=== PATIENT | female | born 1970 | race Caucasian/White ===

== ENCOUNTER 2017-08-13 00:13 | Emergency (ER) | payer OTHER ==
[~2017-08-13] VITALS: Ht 167.6 cm; Wt 68.2 kg
[2017-08-13 00:47] LABS: BASO # 0.1 10^3/uL (0.0-0.2); BASO % 1.7 % (0.0-1.0); EOS # 0.2 10^3/uL (0.0-0.50); EOS % 1.9 % (0.0-3.0); IMMATURE GRANULOCYTE % 0.2 % (0-0); LYMPH # 2.7 10^3/uL (1.5-4.5); LYMPH % 32.5 % (24.0-44.0); MEAN CORPUSCULAR HEMOGLOBIN 37.1 pg (27.0-33.0); MEAN CORPUSCULAR HGB CONC 34.6 g/dl (32.0-36.5); MONO # 0.4 10^3/uL (0.0-0.8); MONO % 5.2 % (0.0-5.0); NEUTROPHILS # 4.9 10^3/uL (1.8-7.7); NEUTROPHILS % 58.5 % (36.0-66.0); PLATELET COUNT, AUTOMATED 302 10^3/uL (150-450); RED CELL DISTRIBUTION WIDTH 13.7 % (11.5-14.5); WHITE BLOOD COUNT 8.3 10^3/uL (4.0-10.0)
[2017-08-13 00:58] LABS: ADD MORPHOLOGY? YES; MEAN CORPUSCULAR VOLUME 107.2 fl (80.0-96.0); POSITIVE MORPH POS FLAG
[2017-08-13 01:23] LABS: ANION GAP 11 MEQ/L (8-16); BLOOD UREA NITROGEN 6 MG/DL (7-18); CALCIUM LEVEL 8.6 MG/DL (8.5-10.1); CARBON DIOXIDE LEVEL 25 MEQ/L (21-32); CHLORIDE LEVEL 109 MEQ/L (98-107); CREATININE FOR GFR 0.58 MG/DL (0.55-1.02); GLOMERULAR FILTRATION RATE > 60.0 (>58); GLUCOSE, FASTING 80 MG/DL (70-105); POTASSIUM SERUM 3.2 MEQ/L (3.5-5.1); SODIUM LEVEL 145 MEQ/L (136-145)
--- NOTE | 2017-08-13 01:30 | REP ---
Clinical: Chest pain . Comparison: None . Findings: The mediastinum and cardiac silhouette are stable and within normal limits for portable technique. The lung garrido are clear without acute consolidation, effusion, or pneumothorax. Skeletal structures are intact. Impression: No acute cardiopulmonary process appreciated. Signed by Tommie Crews MD 08/13/2017 01:21 A
[2017-08-13] MEDS ORDERED: MORPHINE 2 MG/ML 1ML SYRINGE IV ONE (06:45)
[2017-08-13 07:44] VITALS: BP 120/68
--- NOTE | 2017-08-13 08:28 | ECGEPIP ---
Stationary ECG Study [facility] - ED Test Date: 2017-08-13 Pat Name: SHELLY DURÁN Department: Room: - Gender: F Industrial Engineering Director: rn : 1970 Requested By: SUSY Doty Order Number: [id number] Reading MD: Trisha Vallejo Measurements Intervals [place] Rate: 79 P: 18 ND: 134 QRS: 57 QRSD: 74 T: 55 QT: 378 QTc: 433 Interpretive Statements SINUS RHYTHM NO PRIOR FOR COMPARISON Electronically Signed On 08-13-2017 8:28:29 EDT by Trisha Vallejo
== END 2017-08-13 07:47 | disposition home or self-care (01) ==
LOC: M ED 00:13
DX: F10.10 Alcohol abuse, uncomplicated (principal); W19.XXXA Unspecified fall, initial encounter; Y92.481 Parking lot as the place of occurrence of the external cause; Y93.89 Activity, other specified; Y99.9 Unspecified external cause status; I10 Essential (primary) hypertension

== ENCOUNTER 2018-03-15 19:10 | Emergency (ER) | payer OTHER ==
[2018-03-15] MEDS: OXYCODONE/APAP 5MG/325MG(BULK FOR ED) 1 TABLET PO (21:13)
[2018-03-15] MEDS: PENICILLIN V POTASSIUM 500 MG TAB PO (21:13)
== END 2018-03-15 21:39 | disposition home or self-care (01) ==
LOC: M ED 19:10
DX: S02.5XXA Fracture of tooth (traumatic), initial encounter for closed fracture (principal); X58.XXXA Exposure to other specified factors, initial encounter; Y92.9 Unspecified place or not applicable; Y93.9 Activity, unspecified; Y99.9 Unspecified external cause status; K04.7 Periapical abscess without sinus; K08.89 Other specified disorders of teeth and supporting structures; I10 Essential (primary) hypertension; Z72.0 Tobacco use; Z79.82 Long term (current) use of aspirin; Z79.899 Other long term (current) drug therapy
CPT/HCPCS: 99283